=== PATIENT | female | born 1955 | race Caucasian/White ===

== ENCOUNTER → 2017-11-04 | Outpatient (CLI) | payer OTHER ==
[~2017-11-04] MED LIST: ASPI-391 PO; FRRS300 PO
[2017-11-04 16:12] LABS: HEMATOCRIT 22.8 % (37-47); HEMOGLOBIN 6.2 g/dL (12.0-16.0); MEAN CELL VOLUME 69.9 fL (80-100); MEAN CORPUSCULAR HGB CONC 27.2 g/dl (32-36); MEAN PLATELET VOLUME 9.8 fL (7.4-10.4); PLATELET COUNT 310 K/uL (130-400); RED CELL DISTRIBUTION WIDTH CV 18.7 % (11.5-14.5); RED CELL DISTRIBUTION WIDTH SD 47.4 fL (36.4-46.3); WHITE BLOOD COUNT 8.47 K/uL (4.8-10.8)
[2017-11-04 16:14] LABS: BASO % 0.5 %; BASO ABS # 0.04 K/uL (0-0.2); EOS % 3.2 %; EOS ABS # 0.27 K/uL (0-0.5); IG# 0.01 K/uL (0.00-0.02); LYMPH % 27.6 %; LYMPH ABS # 2.34 K/uL (1.2-3.4); MONO % 8.1 %; MONO ABS # 0.69 K/uL (0.11-0.59); NEUT % 60.5 %; NEUT ABS # 5.12 K/uL (1.4-6.5)
== END | disposition home or self-care (01) ==
LOC: C.LAB 14:07
PROVIDERS: ATTEND Family Medicine
DX: Z86.2 Personal history of diseases of the blood and blood-forming organs and certain disorders involving the immune mechanism (principal)